=== PATIENT | female | born 1935 | race African-American/Black ===

== ENCOUNTER 2016-10-15 10:34 | Emergency (ER) | payer MEDICARE, OTHER ==
[~2016-10-15] VITALS: Ht 160 cm; Wt 91.8 kg
[2016-10-15] MEDS ORDERED: SIMV20TA6 PO (10:45)
[2016-10-15] MEDS ORDERED: LISI-618 PO (10:45)
[2016-10-15] MEDS ORDERED: HYDR12.54 PO (10:45)
[2016-10-15] MEDS ORDERED: AMLO10TA55 PO (10:45)
[2016-10-15] MEDS ORDERED: METF750T2 PO (10:45)
[2016-10-15] MEDS ORDERED: VITAD5000 PO (10:48)
[2016-10-15 10:55] LABS: GLUCOSE,POINT OF CARE 97 MG/DL (70-110)
[2016-10-15 12:01] VITALS: BP 125/76
== END 2016-10-15 12:02 | disposition home or self-care (01) ==
LOC: EMS 10:36
DX: J40 Bronchitis, not specified as acute or chronic (principal); J06.9 Acute upper respiratory infection, unspecified; E11.9 Type 2 diabetes mellitus without complications; I10 Essential (primary) hypertension; E78.00 Pure hypercholesterolemia, unspecified
CPT/HCPCS: 82962; 99283